=== PATIENT | female | born 1955 | race Caucasian/White ===

== ENCOUNTER 2019-08-18 08:10 | Emergency (ER) | payer MEDICARE, MEDICAID, SELFPAY ==
[2019-08-18 08:08] VITALS: BP 180/106; PULSE 113; RESP 33; TEMP 36.7; O2SAT 94
[2019-08-18] MEDS: ALBUTEROL/IPRATROPIUM 3 ML AMPUL INH (08:15)
--- NOTE | 2019-08-18 08:15 | ED.GENADULT ---
HPI - General Adult General Chief complaint: Shortness of Breath/Dyspnea Stated complaint: SOB & HX of COPD Time Seen by Provider: 08/18/19 08:13 Source: patient Mode of arrival: EMS Limitations: no limitations History of Present Illness HPI narrative: 64-year-old female with a history of COPD and coronary artery disease here for evaluation of 1-2 days of shortness of breath, chest pain, productive cough, weakness. She states she really started to feel bad yesterday. States this morning after she got up to go to the bathroom she ?fell into bed ?did not hit her head. No loss of consciousness. Also describing weakness for the past couple days. Describes pain ?all over? states that she is supposed to be on oxygen at home however has not been using because the plastic tubing has been irritating her face. No fevers. Related Data Home Medications Medication Instructions Recorded Confirmed albuterol sulfate 1 puff INHALATION PRN PRN 08/18/19 atorvastatin 10 mg PO DAILY 08/18/19 08/18/19 budesonide-formoterol [Symbicort] 1 puff INHALATION DIRECTED 08/18/19 08/18/19 cyclobenzaprine 10 mg PO TID PRN 08/18/19 08/18/19 hydroxyzine HCl 25 mg PO QID PRN 08/18/19 08/18/19 metoprolol succinate 25 mg PO DAILY 08/18/19 08/18/19 montelukast 10 mg PO DAILY 08/18/19 08/18/19 omeprazole 40 mg PO DAILY 08/18/19 08/18/19 ondansetron 8 mg TRANSLINGUAL TID PRN 08/18/19 08/18/19 oxycodone-acetaminophen 1 tab PO Q4-6H PRN 08/18/19 08/18/19 zolpidem 10 mg PO BEDTIME 08/18/19 08/18/19 Previous Rx's Medication Instructions Recorded albuterol sulfate 2.5 mg INHALATION Q4-6H PRN #90 ml 08/18/19 levofloxacin [Levaquin] 750 mg PO Q24H 4 Days #4 tab 08/18/19 Allergies Allergy/AdvReac Type Severity Reaction Status Date / Time ALL STEROIDS Allergy Severe CHEST Uncoded 08/18/19 08:46 TIGHTNESS, THROAT CLOSES, HIVES, GI UPSET BEE VENOM Allergy Severe ANAPHYLAXIS Uncoded 08/18/19 08:46 TETRACYCLINES Allergy Severe Rash Uncoded 08/18/19 08:46 Review of Systems Constitutional Constitutional: Denies fever(s) Cardiovascular Cardiovascular: Reports chest pain, Reports dyspnea and Reports dyspnea on exertion Respiratory Respiratory: Reports chest congestion, Reports pain with cough, Reports dyspnea and Reports dyspnea on exertion Gastrointestinal Gastrointestinal: Reports abdominal pain, Denies nausea and Denies vomiting Genitourinary Genitourinary: Denies dysuria Musculoskeletal Musculoskeletal: Reports myalgias and Reports arthralgias Integumentary/Breasts Skin/Breast: Denies lesions and Denies rash Neurologic Neurologic: Denies behavioral changes Psychiatric Psychiatric: Denies behavioral changes Hematologic/Lymphatic Hematologic/Lymphatic: Denies easy bleeding and Denies easy bruising Patient History Medical History COPD (chronic obstructive pulmonary disease) (Acute) Social History lives independently: Yes Smoking Status: Current every day smoker Exam Initial Vital Signs Initial Vital Signs: Vital Signs Temperature 98.1 F 08/18/19 08:08 Pulse Rate 113 H 08/18/19 08:08 Respiratory Rate 33 H 08/18/19 08:08 Blood Pressure 180/106 H 08/18/19 08:08 Pulse Oximetry 94 08/18/19 08:08 Const General: cooperative and frail appearing Orientation: alert, awake and oriented x3 HENMT Head: normal to inspection and normocephalic Resp Effort & Inspection: not labored, no retractions and tachypneic Auscultation: rhonchi and wheezes Cardio Rate: tachycardic Rhythm: regular rhythm Pulses: radial pulses present GI Inspection: non-distended Palpation: soft and No firm Skin Lesions: no lesions Rashes: no rashes Neuro General: alert, awake and oriented x3 Cognition: normal cognition Speech: speech normal Extrem General: normal to inspection and capillary refill normal Psych Appearance: grossly normal and well kempt Course Orders Ordered: ED Orders 08/18/19 08:14 XR chest 1V Stat 08/18/19 08:15 EKG-12 Lead Stat RT Consult Eval and Treat Now 08/18/19 08:20 B Type Natriuretic Peptide Stat Complete Blood Count AUTO DIFF Stat Influenza A and B by PCR Rapid Stat 08/18/19 09:20 Comprehensive Metabolic Panel Stat Lipase Stat Partial Thromboplastin Time Stat Procalcitonin Stat Prothrombin Time INR Stat Troponin I Stat Discontinued Medications Albuterol/Ipratropium (Duoneb) 3 ml INH NOW ONE Stop: 08/18/19 08:14 Levofloxacin (Levaquin) 750 mg in 150 mls @ 100 mls/hr IV NOW ONE Stop: 08/18/19 09:42 Last Admin: 08/18/19 09:02 Dose: 100 mls/hr Documented by: BHAVYASENTamiko Ondansetron HCl (Zofran) 4 mg IV NOW ONE Stop: 08/18/19 08:55 Last Admin: 08/18/19 09:02 Dose: 4 mg Documented by: MEISENTamiko Ondansetron HCl (Zofran Odt) 4 mg SL NOW ONE Stop: 08/18/19 10:22 Last Admin: 08/18/19 10:31 Dose: 4 mg Documented by: MEISENB Oxycodone/Acetaminophen (Percocet 5/325) 1 tab PO NOW ONE Stop: 08/18/19 08:55 Last Admin: 08/18/19 09:02 Dose: 1 tab Documented by: MEISENB Oxycodone/Acetaminophen (Percocet 5/325) 1 tab PO NOW ONE Stop: 08/18/19 10:22 Last Admin: 08/18/19 10:31 Dose: 1 tab Documented by: MARCELINO Vital Signs Vital signs: Vital Signs - 8 hr 08/18/19 08:08 08/18/19 08:30 08/18/19 09:15 Temperature 98.1 F Pulse Rate 113 H 108 H 108 H Respiratory Rate 33 H 29 H 33 H Blood Pressure 180/106 H Blood Pressure [Right Arm] 151/127 H 161/98 H Pulse Oximetry 94 100 99 08/18/19 09:36 08/18/19 10:00 08/18/19 11:05 Temperature Pulse Rate 105 H 118 H 96 H Respiratory Rate 31 H 30 H 22 Blood Pressure Blood Pressure [Right Arm] 183/91 H 166/90 H 159/97 H Pulse Oximetry 99 96 97 Medical Decision Making Lab Data Lab results reviewed: Yes I reviewed the patient's lab results. Result diagrams: 08/18/19 08:20 08/18/19 09:20 Labs: Lab Results 08/18/19 08/18/19 08/18/19 Range/Units 08:20 08:20 09:20 WBC 12.7 H (4.5-11.0) X10^3/uL RBC 4.54 (4.0-5.2) X10^6/uL Hgb 14.0 (12.0-16.0) g/dL Hct 40.7 (36-46) % MCV 89.5 (80-100) fL MCH 30.8 (26-34) PG MCHC 34.4 (30-36) % RDW 13.5 (11.6-14.8) % Plt Count 388 (150-400) X10^3/uL Neut % (Auto) 85.6 H (50-75) % Lymph % (Auto) 6.0 L (25-40) % Crowley % (Auto) 7.1 (3-14) % Eos % (Auto) 0.9 L (2-4) % Baso % (Auto) 0.4 (0-2) % Neut # (Auto) 00111 H (5021-9933) /uL Lymph # (Auto) 800 L (6801-5127) /uL Crowley # (Auto) 900 (0-900) /uL Eos # (Auto) 100 (0-450) /uL Baso # (Auto) 0 (0-100) /uL PT 13.5 H (10.1-12.7) SECONDS INR 1.2 (0.9-1.3) APTT 30 (26.4-36.2) SECONDS Sodium (137-145) mmol/L Potassium (3.4-5.1) mmol/L Chloride (98-107) mmol/L Carbon Dioxide (22-32) mmol/L BUN (7-17) mg/dL Creatinine (0.52-1.04) mg/dL Estimated GFR (>60) mL/min BUN/Creatinine Ratio (6-22) Glucose (80-110) mg/dL Calcium (8.4-10.2) mg/dL Total Bilirubin (0.2-1.3) mg/dL AST (14-36) IU/L ALT (<35) IU/L Alkaline Phosphatase (38-126) U/L Troponin I (0.01-0.034) ng/mL B-Natriuretic Peptide < 100 (<100) Total Protein (6.3-8.2) g/dL Albumin (3.5-5.0) g/dL Globulin (1.7-4.1) g/dL Albumin/Globulin Ratio (1.0-2.8) Lipase (23-300) U/L Procalcitonin (<0.5) ng/mL Influenza A & B (PCR) Negative (Negative) 08/18/19 08/18/19 Range/Units 09:20 09:20 WBC (4.5-11.0) X10^3/uL RBC (4.0-5.2) X10^6/uL Hgb (12.0-16.0) g/dL Hct (36-46) % MCV (80-100) fL MCH (26-34) PG MCHC (30-36) % RDW (11.6-14.8) % Plt Count (150-400) X10^3/uL Neut % (Auto) (50-75) % Lymph % (Auto) (25-40) % Crowley % (Auto) (3-14) % Eos % (Auto) (2-4) % Baso % (Auto) (0-2) % Neut # (Auto) (3205-5953) /uL Lymph # (Auto) (7634-4522) /uL Crowley # (Auto) (0-900) /uL Eos # (Auto) (0-450) /uL Baso # (Auto) (0-100) /uL PT (10.1-12.7) SECONDS INR (0.9-1.3) APTT (26.4-36.2) SECONDS Sodium 135 L (137-145) mmol/L Potassium 3.0 L (3.4-5.1) mmol/L Chloride 96 L (98-107) mmol/L Carbon Dioxide 27 (22-32) mmol/L BUN 10 (7-17) mg/dL Creatinine 0.40 L (0.52-1.04) mg/dL Estimated GFR > 60.0 (>60) mL/min BUN/Creatinine Ratio 25.0 H (6-22) Glucose 131 H (80-110) mg/dL Calcium 9.4 (8.4-10.2) mg/dL Total Bilirubin 0.7 (0.2-1.3) mg/dL AST 23 (14-36) IU/L ALT 14 (<35) IU/L Alkaline Phosphatase 108 (38-126) U/L Troponin I < 0.012 (0.01-0.034) ng/mL B-Natriuretic Peptide (<100) Total Protein 8.0 (6.3-8.2) g/dL Albumin 4.2 (3.5-5.0) g/dL Globulin 3.8 (1.7-4.1) g/dL Albumin/Globulin Ratio 1.1 (1.0-2.8) Lipase 33 (23-300) U/L Procalcitonin < 0.05 (<0.5) ng/mL Influenza A & B (PCR) (Negative) Imaging Data Chest x-ray: Radiologist's impression: [address] [address] XRay Report Signed Patient: Myrna Jones LMR#: [id number] : 5Acct:[id number] Age/Sex: 64 / FDate of Service: 08/18/19 Loc: ED Accession Number: [id number] Procedure: XR chest 1V Ordering Provider: Andrew Morley D.O. PROCEDURE: XR CHEST 1V INDICATIONS: COPD with SOB TECHNIQUE: One view of the chest was acquired. COMPARISON: CT chest 02/22/2017, CXR 04/02/2016. FINDINGS: Surgical changes and devices: None. Lungs and pleura: Lung volumes are prominent. Increased lucency in the lung parenchyma in the right upper lobe and increased interstitial markings similar to the exam from 2016. Minimal hazy opacity at the right lung base. No consolidation. No pleural effusions or obvious pneumothorax. Mediastinum: Mediastinal contours appear normal. Heart size is normal. Bones and chest wall: No suspicious bony lesions. Overlying soft tissues appear unremarkable. IMPRESSION: No acute cardiopulmonary abnormality identified. Extensive emphysematous change. Dictated by: Apolinar Hammer M.D. on 08/18/2019 at 9:11 Approved by: Apolinar Hammer M.D. on 08/18/2019 at 9:14 ECG Data Attestation: I personally reviewed and interpreted this ECG as follows: Prior ECG tracings: not available for review Interpretation: Sinus tachycardia Ventricular rate of 108 Normal axis Normal QRS Normal QTC No ST T wave changes MDM Narrative Medical decision making narrative: Patient stated that she felt better after the nebulizer treatments here in the ER. Chest x-ray shows no definitive pneumonia however she has had a increase in sputum production worsening shortness of breath over the past couple days. Also appears that she has not been using her home oxygen as needed. She was given antibiotics here in the ER. Was given her home dose of pain medication. Oxygen saturations greater 100%. Her heart rate improved. She was given return precautions and follow-up instructions. She expressed understanding and agreement with plan. Discharge Plan Departure Patient Disposition: Home Clinical Impression: COPD exacerbation Activity Restrictions/Additional Instructions: Take the antibiotics starting tomorrow 08/19/19. Contact your primary provider for follow-up. I do recommend use your home oxygen as directed. Return to the emergency department for any new symptoms Prescriptions: New levofloxacin [Levaquin] 750 mg tablet 750 mg PO Q24H 4 Days Qty: 4 RF: 0 albuterol sulfate 1.25 mg/3 mL solution for nebulization 2.5 mg INHALATION Q4-6H PRN (Reason: shortness of breath or wheezing) Qty: 90 RF: 0 No Action cyclobenzaprine 10 mg tablet 10 mg PO TID PRN (Reason: Muscle Spasm) RF: 0 atorvastatin 10 mg tablet 10 mg PO DAILY RF: 0 omeprazole 40 mg capsule,delayed release(DR/EC) 40 mg PO DAILY RF: 0 ondansetron 8 mg tablet,disintegrating 8 mg translingual TID PRN (Reason: Nausea And Vomiting) RF: 0 oxycodone-acetaminophen 10-325 mg tablet 1 tab PO Q4-6H PRN (Reason: pain) RF: 0 montelukast 10 mg tablet 10 mg PO DAILY RF: 0 hydroxyzine HCl 25 mg tablet 25 mg PO QID PRN (Reason: as directed) RF: 0 metoprolol succinate 25 mg tablet extended release 24 hr 25 mg PO DAILY RF: 0 zolpidem 10 mg tablet 10 mg PO BEDTIME RF: 0 albuterol sulfate 90 mcg/actuation HFA aerosol inhaler 1 puff INHALATION PRN PRN (Reason: Shortness Of Breath) RF: 0 Symbicort 160-4.5 mcg/actuation HFA aerosol inhaler 1 puff INHALATION DIRECTED RF: 0 Referrals: Prekikiler,Sharonda, DO [Primary Care Provider] -
[2019-08-18 08:30] VITALS: BP 151/127; PULSE 108; PULSE 112; RESP 26; RESP 29; O2SAT 100
--- NOTE | 2019-08-18 08:51 | PC.NURSE ---
pt states, she has been exposed with family with cold, developed shortness of breath onset last night, chronic coughing with dark thick green phlemn. reports, she takes oxycodone 4 times a day, last dose last night at 9pm , she is waiting for paliative care.
[2019-08-18 08:54] LABS: Add Manual Diff / Slide Review NO; Basophils Absolute Auto 0 /uL (0-100); Basophils Percent Auto 0.4 % (0-2); Eosinophils Absolute Auto 100 /uL (0-450); Eosinophils Percent Auto 0.9 % (2-4); Hematocrit 40.7 % (36-46); Lymphocytes Absolute Auto 800 /uL (1100-4500); Mean Corpuscular HGB Conc 34.4 % (30-36); Mean Corpuscular Hemoglobin 30.8 PG (26-34); Mean Corpuscular Volume 89.5 fL (80-100); Monocytes Absolute Auto 900 /uL (0-900); Monocytes Percent Auto 7.1 % (3-14); Neutrophils Absolute Auto 10900 /uL (1500-7000); Neutrophils Percent Auto 85.6 % (50-75); Platelet Count 388 X10^3/uL (150-400); Red Blood Cell Count 4.54 X10^6/uL (4.0-5.2); Red Cell Distribution Width 13.5 % (11.6-14.8); White Blood Cell Count 12.7 X10^3/uL (4.5-11.0)
[2019-08-18] MEDS: OXYCODONE/ACETAMINOPHEN 5/325 TABLET 1 TAB PO ×2 (09:02→10:31)
[2019-08-18] MEDS: levoFLOXacin 750 MG/150 ML PIGGYBACK 100 MG IV (09:02)
[2019-08-18] MEDS: ONDANSETRON 4 MG/2 ML INJ IV (09:02)
[2019-08-18 09:15] VITALS: BP 161/98; PULSE 108; RESP 33; O2SAT 99
[2019-08-18 09:28] LABS: B Type Natriuretic Peptide < 100 (<100); Influenza A and B by PCR Rapid Negative (Negative)
[2019-08-18 09:36] VITALS: BP 183/91; PULSE 105; RESP 31; O2SAT 99
[2019-08-18 09:37] LABS: INR 1.2 (0.9-1.3); Prothrombin Time 13.5 SECONDS (10.1-12.7)
[2019-08-18 09:39] LABS: PTT Partial Thromboplastin Tim 30 SECONDS (26.4-36.2)
[2019-08-18 09:47] LABS: Alanine Aminotransferase 14 IU/L (<35); Albumin 4.2 g/dL (3.5-5.0); Albumin Globulin Ratio 1.1 (1.0-2.8); Alkaline Phosphatase 108 U/L (38-126); Aspartate Aminotransferase 23 IU/L (14-36); Bilirubin Total 0.7 mg/dL (0.2-1.3); Blood Urea Nitrogen 10 mg/dL (7-17); Calcium 9.4 mg/dL (8.4-10.2); Carbon Dioxide 27 mmol/L (22-32); Chloride 96 mmol/L (98-107); Estimated Glomerular Filt Rate > 60.0 mL/min (>60); Globulin 3.8 g/dL (1.7-4.1); Glucose 131 mg/dL (80-110); HEMOLYSIS < 15 (0-50); Lipase 33 U/L (23-300); Sodium 135 mmol/L (137-145)
[2019-08-18 09:59] LABS: Troponin I < 0.012 ng/mL (0.01-0.034)
[2019-08-18 10:00] VITALS: BP 166/90; PULSE 118; RESP 30; O2SAT 96
[2019-08-18 10:00] LABS: Procalcitonin < 0.05 ng/mL (<0.5)
[2019-08-18] MEDS: ONDANSETRON 4 MG ODT SL (10:31)
[2019-08-18 11:05] VITALS: BP 159/97; PULSE 96; RESP 22; O2SAT 97
== END 2019-08-18 11:50 | disposition home or self-care (01) ==
PROVIDERS: Emergency Provider Emergency Medicine; PCP Internal Medicine
DX: J44.1 Chronic obstructive pulmonary disease with (acute) exacerbation (principal)
CPT/HCPCS: 36415; 71045; 80053; 83690; 83880; 84145; 84484; 85025; 85610; 85730; 87502; 93005; 94640; 96365; 96366; 96375; 99283; 99285; J1956; J2405